=== PATIENT | male | born 1970 | race Caucasian/White ===

== ENCOUNTER → 2017-10-30 11:11 | Outpatient (POV) | payer BC, SELFPAY ==
[2017-10-30 11:49] VITALS: BP 107/78; PULSE 110; RESP 18; O2SAT 99
--- NOTE | 2017-10-30 12:07 | HMH.PMCON ---
Assessment and Plan (1) Degenerative joint disease (DJD) of lumbar spine Current visit: Yes Status: Acute Qualifiers: Spinal osteoarthritis complication: with radiculopathy Qualified Code(s): M47.26 - Other spondylosis with radiculopathy, lumbar region Category: Medical Code(s): M47.816 - Spondylosis without myelopathy or radiculopathy, lumbar region (2) Lumbosacral radiculopathy due to degenerative joint disease of spine Current visit: Yes Status: Acute Category: Medical Code(s): M47.27 - Other spondylosis with radiculopathy, lumbosacral region - Assessment and plan all Dx Assessment and Plan for all problems:: I believe he would benefit from a lumbar epidural steroid injection. We will seek approval for a lumbar epidural steroid injection L4-L5. I told him that we cannot prescribe his Wren. He will have to continue getting this from Dr. Delatorre. HPI - Data of Consult Patient: new to practice Consult date: 10/30/17 Requesting Physician: José Allen MD Primary Care Provider: Wm Delatorre MD Family Provider: Referral Provider, MD - Consult Narrative Reason for consult: Low back pain and leg pain History of present illness: Mr. Camejo is a 47 year old male who has a long history of low back pain with lumbar radicular symptoms. He was recently treated at the pain treatment center in [facility]. He was called in for a pill count and was working in [place] and unable to return for the pill count so he was dismissed from the pain treatment center. Dr. Delatorre has resumed providing his Wren 7.5 mg 3 times a day. He has not received any injections. He has not undergone any physical therapy. I have told him that we cannot prescribe him the Wren. I do believe he would benefit from injections. He did have previous back surgery in 2012. Most of his pain is in the low back with radiation to both legs. Pain score is an 8 out of 10. CC: José Allen MD [facility] History I have reviewed the patient's past medical history: Yes Medical History: Denies:: Cancer, Diabetes Mellitus Type 1, Diabetes Mellitus Type 2, MRSA Other Medical History: Reports: Arthritis Other Surgeries: Yes: Other (Back surgery) Amputation: No Fractures: No - *Social History Smoking Status: Current every day smoker Tobacco Type: cigarettes # Packs/Day (cigarettes): 1 Alcohol Intake: never Occupational Status: employed - Psychiatric History Expresses thoughts of harming self/others: None Suicide Plan Description: No Plan *Family Hx:: Unable to obtain Review of Systems - *Musculoskeletal Reports joint pain, Reports back pain, Reports radiating pain into limb, Reports stiffness, Reports tingling - *Neurologic Reports abnormal walking, Reports radiating pain Meds Allergies Allergy/AdvReac Type Severity Reaction Status Date / Time ketorolac [KETOROLAC] Allergy Unknown I-RASH Unverified 10/16/17 14:03 propoxyphene Allergy Unknown ITCHING Unverified 10/16/17 14:03 [From LOR] Objective Vital signs: Pulse Resp BP Pulse Ox 110 H 18 107/78 99 10/30/17 11:49 10/30/17 11:49 10/30/17 11:49 10/30/17 11:49 - Routine Back/Spine/Pelvis Exam Back/Spine: Present: vertebral tenderness, pain with flexion, abnormal straight leg raise - *Routine Neurological Exam Present: alert, oriented X3 Opioid Risk Tool - Opioid Risk Tool-Male Family hx alcohol abuse: N Family hx illegal drugs: N Family hx rx drug abuse: N Personal hx alcohol abuse: N Personal hx illegal drugs: N Personal hx rx drug abuse: N Age: 45+ Hx of sexual abuse: N Mental health issues-ADD,OCD,Bipolar, etc: N Hx of depression: N Male Risk Score: 0
--- NOTE | 2017-10-30 12:10 | P.CONS_ITS ---
Assessment and Plan (1) Degenerative joint disease (DJD) of lumbar spine Current visit: Yes Status: Acute Qualifiers: Spinal osteoarthritis complication: with radiculopathy Qualified Code(s): M47.26 - Other spondylosis with radiculopathy, lumbar region Category: Medical Code(s): M47.816 - Spondylosis without myelopathy or radiculopathy, lumbar region (2) Lumbosacral radiculopathy due to degenerative joint disease of spine Current visit: Yes Status: Acute Category: Medical Code(s): M47.27 - Other spondylosis with radiculopathy, lumbosacral region - Assessment and plan all Dx Assessment and Plan for all problems:: I believe he would benefit from a lumbar epidural steroid injection. We will seek approval for a lumbar epidural steroid injection L4-L5. I told him that we cannot prescribe his Emmalena. He will have to continue getting this from Dr. Delatorre. HPI - Data of Consult Patient: new to practice Consult date: 10/30/17 Requesting Physician: José Allen MD Primary Care Provider: Wm Delatorre MD Family Provider: Referral Provider, MD - Consult Narrative Reason for consult: Low back pain and leg pain History of present illness: Mr. Camejo is a 47 year old male who has a long history of low back pain with lumbar radicular symptoms. He was recently treated at the pain treatment center in [facility]. He was called in for a pill count and was working in [place] and unable to return for the pill count so he was dismissed from the pain treatment center. Dr. Delatorre has resumed providing his Emmalena 7.5 mg 3 times a day. He has not received any injections. He has not undergone any physical therapy. I have told him that we cannot prescribe him the Emmalena. I do believe he would benefit from injections. He did have previous back surgery in 2012. Most of his pain is in the low back with radiation to both legs. Pain score is an 8 out of 10. CC: José Allen MD [facility] History I have reviewed the patient's past medical history: Yes Medical History: Denies:: Cancer, Diabetes Mellitus Type 1, Diabetes Mellitus Type 2, MRSA Other Medical History: Reports: Arthritis Other Surgeries: Yes: Other (Back surgery) Amputation: No Fractures: No - *Social History Smoking Status: Current every day smoker Tobacco Type: cigarettes # Packs/Day (cigarettes): 1 Alcohol Intake: never Occupational Status: employed - Psychiatric History Expresses thoughts of harming self/others: None Suicide Plan Description: No Plan *Family Hx:: Unable to obtain Review of Systems - *Musculoskeletal Reports joint pain, Reports back pain, Reports radiating pain into limb, Reports stiffness, Reports tingling - *Neurologic Reports abnormal walking, Reports radiating pain Meds Allergies Allergy/AdvReac Type Severity Reaction Status Date / Time ketorolac [KETOROLAC] Allergy Unknown I-RASH Unverified 10/16/17 14:03 propoxyphene Allergy Unknown ITCHING Unverified 10/16/17 14:03 [From LOR] Objective Vital signs: Pulse Resp BP Pulse Ox 110 H 18 107/78 99 10/30/17 11:49 10/30/17 11:49 10/30/17 11:49 10/30/17 11:49 - Routine Back/Spine/Pelvis Exam Back/Spine: Present: vertebral tenderness, pain with flexion, abnormal straight leg raise - *Routine Neurological Exam Present: alert, oriented X3 Opioid Risk Tool - Opioid Risk Tool-Male Family hx alcohol abuse: N Family
== END ==
PROVIDERS: PCP Emergency Medicine; Visit Provider Anesthesiology
DX: M51.16 Intervertebral disc disorders with radiculopathy, lumbar region (principal); M51.17 Intervertebral disc disorders with radiculopathy, lumbosacral region
CPT/HCPCS: 99202

== ENCOUNTER → 2018-01-07 15:55 | Outpatient (REF) | payer BC, SELFPAY ==
[2018-01-07 17:46] LABS: Amphetamine/Metha Screen,Urine Negative ng/mL (<1000); Barbiturates Screen,Urine Negative ng/mL (<200); Benzodiazepines Screen,Urine Negative ng/mL (200); Cannabinoid Screen,Urine Negative ng/mL (<50); Cocaine Screen,Urine Negative ng/g (<300); Methadone Screen,Urine Negative ng/mL (<300); Opiate Screen,Urine Negative ng/mL (<300); Phencyclidine Screen,Urine Negative ng/mL (<25)
== END ==
LOC: LAB 15:55
PROVIDERS: Visit Provider Physician Assistant
DX: Z79.899 Other long term (current) drug therapy (principal)
CPT/HCPCS: 80305

== ENCOUNTER → 2019-11-11 13:58 | Outpatient (CLI) | payer BC, SELFPAY ==
--- NOTE | 2019-11-11 14:04 | XR_ITS ---
PROCEDURE: XR FOOT WT BEARING LT 3V CLINICAL INDICATION: pain COMPARISON: [id number] XR foot RT min 3V from 03/13/2019 FINDINGS: No fracture or dislocation. No lytic or blastic change. There is normal mineralization. The joint spaces are well-preserved. No significant degenerative/arthritic changes. No erosive changes evident. Other findings:There is mild pes planus and there is minimal hypertrophic change of the anterior distal tibia IMPRESSION: Mild pes planus Dictated by: Sahil Barton MD 11/11/2019 14:45 Electronically signed by Sahil Barton MD in [place] 11/11/2019 14:45
--- NOTE | 2019-11-11 14:04 | XR_ITS ---
PROCEDURE: XR FOOT WT BEARING RT 3V CLINICAL INDICATION: pain COMPARISON: [id number] XR foot RT min 3V from 03/13/2019 FINDINGS: No fracture or dislocation. No lytic or blastic change. There is normal mineralization. There are mild osteoarthritic changes of the talonavicular joint. There is an accessory bony ossicle at the anterior aspect of the talonavicular joint which could be due to an old fracture or ununited ossification center. This had a similar appearance on 03/13/2019. Hypertrophic changes are present vomiting anterior aspect of the distal tibia and there is some minimal periarticular calcification posteriorly at the ankle joint. A calcific density is also present along the anterior and distal aspect of the 1st metatarsal with some mild soft tissue swelling at this region. Other findings:None. IMPRESSION: Degenerative changes. No acute finding Dictated by: Sahil Barton MD 11/11/2019 14:47 Electronically signed by Sahil Barton MD in [place] 11/11/2019 14:47
== END ==
PROVIDERS: PCP Emergency Medicine; Visit Provider Podiatrist
DX: M79.672 Pain in left foot (principal); M79.671 Pain in right foot
CPT/HCPCS: 73630

== ENCOUNTER 2020-01-08 08:00 | Outpatient (RCR) | payer BC, SELFPAY | END 2020-01-08 09:00 | disposition home or self-care (01) | LOC: PT 08:00 | PROVIDERS: PCP Emergency Medicine; Visit Provider Anesthesiology Pain Medicine | DX: M47.816 Spondylosis without myelopathy or radiculopathy, lumbar region (principal); M54.16 Radiculopathy, lumbar region; M17.0 Bilateral primary osteoarthritis of knee; G89.4 Chronic pain syndrome | CPT/HCPCS: 20560; 97010; 97014; 97110; 97163; G0283 ==

== ENCOUNTER 2020-06-01 15:13 | Emergency (ER) | payer BC, SELFPAY ==
[2020-06-01] VITALS (35 sets, daily range): BP systolic 74–224; BP diastolic 36–123; PULSE 57–120; RESP 16–20; TEMP 34.2–35.7; O2SAT 88–100; BMI 22.4
--- NOTE | 2020-06-01 15:13 | PC.NURSE ---
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
--- NOTE | 2020-06-01 15:13 | PC.NURSE ---
Code blue information: 1513- pt arrived via EMS, ER MD at BS 1515- pulse check, no pulse, cpr continued- EPI given- see DEC 1515- pulse check, PEA, cpr continued 1518- pulse check, tachycardia noted, positive pulse 1520- fsbs 522 1521- EKG 1525- fisher catheter inserted, ua obtained 1526- abg obtained 1525- pt intubated per ER MD, ETT 7.5, 24 at [facility] 1531-radiology at BS, abd results given to ER 1533- echo at BS 1537- pt placed on ventilator per RT
--- NOTE | 2020-06-01 15:34 | XR_ITS ---
PROCEDURE: XR CHEST PORTABLE CLINICAL HISTORY: unresponsive Code blue COMPARISON: CR CXR1 CHEST-PORTABLE from 05/05/2015 CR CXR CHEST(2 VIEWS-NOT PORTABLE) from 05/05/2015 CR CXR2 CHEST-AP VIEW ONLY from 05/05/2015 FINDINGS: Endotracheal tube is present. The tip is in good position 5.5 cm above the taqueria at the T3-T4 level. There is overlying resuscitative device is present as well as monitoring device is somewhat obscuring the right chest. There is increased density in the right lower lung zone which may be due to atelectasis or infiltrate. The left hilum is also somewhat prominent. Gas-filled stomach noted. No evidence of pneumothorax or mediastinal shift. There is a bone plate along the lower cervical spine No acute bony abnormalities. IMPRESSION: Endotracheal tube tip in good position. Right lower lobe atelectasis or infiltrate. Prominent left hilum Dictated b Sahil Barton MD 06/01/2020 15:41 Sahil Barton MD in [place] 06/01/2020 15:41
[2020-06-01 15:41] LABS: Basophils # 0.1 K/mm3 (0-0.2); Basophils % 0.7 % (0.1-2.0); Eosinophils # 0.4 K/mm3 (0.0-0.4); Eosinophils % 2.3 % (0.1-12.0); Hematocrit 37.2 % (42.0-52.0); Hemoglobin 11.3 g/dL (14.1-18.0); Lymphocytes # 7.7 K/mm3 (0.7-4.5); Lymphocytes % 51.2 % (10-50); Mean Corpuscular HGB Conc 30.4 g/dL (31.8-35.4); Mean Corpuscular Volume 108.4 fl (80-94); Mean Platelet Volume 7.8 fl (7.4-10.4); Monocytes # 0.5 K/mm3 (0.1-1.0); Monocytes % 3.4 % (1.7-9.3); Neutrophils # 6.4 K/mm3 (1.8-7.8); Neutrophils % 42.4 % (37.0-80.0); Platelet Count 214 K/mm3 (142-424); Red Blood Count 3.43 M/mm3 (4.60-6.20); Red Cell Distribution Width 12.8 % (11.5-17.5)
[2020-06-01 15:42] LABS: Chloride 100 mmol/L (98-107); Potassium 4.9 mmoL/L (3.5-5.1); Sodium 132 mmol/L (136-145)
[2020-06-01 15:43] LABS: MANUAL DIFFERENTIAL MANUAL DIFFERENTIAL (MANUAL DIFF)
[2020-06-01 15:44] LABS: Blood Urea Nitrogen 13 mg/dl (9-20); Creatinine Clearance Estimated 82 mL/min (50-200); Estimated Glomerular Filt Rate 64 ml/min (>60); GFR (African American) 77 ML/MIN (>60)
[2020-06-01 15:45] LABS: Alanine Aminotransferase 64 U/L (12-78); Albumin Level 2.8 g/dl (3.5-5.0); Albumin/Globulin Ratio 1.3 (1.1-1.8); Alkaline Phosphatase 50 U/L (38-126); Anion Gap 23.9 mEq/L (5-15); Aspartate Amino Transferase 94 U/L (17-59); Bilirubin,Total 0.2 mg/dl (0.2-1.3); Calcium 8.5 mg/dl (8.4-10.2); Carbon Dioxide 13 mmol/L (22.0-30.0); Globulin 2.1 g/dL (1.3-3.2); Total Protein,Serum 4.9 g/dl (6.3-8.2)
[2020-06-01 15:47] LABS: Glucose 529 mg/dl (74-100)
--- NOTE | 2020-06-01 15:47 | PC.NURSE ---
Addendum entered by Michelle Coe RN 06/01/20 18:36: notified Original Note: notified RT of critical glucose level called by lab.
--- NOTE | 2020-06-01 15:47 | HMH.EDGENADL ---
ED Disposition Clinical Impression: Cardiac arrest Disposition: Xfer Short-Term Hosp Condition on Discharge: Critical Referrals: PCP,No [Primary Care Provider] - Forms: Transfer Record - ED Time of Disposition: 21:17 - Critical Care Critical Care Time: Yes Attestation: On 06/01/20, the high probability of a clinically significant, sudden or life threatening deterioration of the following system(s) required my full and direct attention, intervention and personal management. The time I documented below is in addition to time spent performing reported procedures but includes the following listed in this critical care notation. Total Critical Care Time: 45 Vital system(s) involved:: Circulatory Failure My critical care processes included: Assessment & monitoring of V/S, Initial and Re-exams, Data Review/Interpretation, Coordinating Care, Medication Orders and management, Documentation Medical Decision Making - Medical Records Medical records reviewed: Yes: I reviewed the patient's medical records. Comment: 50-year-old male with a history of heroin abuse and hypertension presents to the emergency department as a CODE BLUE. Patient arrived receiving chest compressions and ACLS was continued. From the history he was down around 25 minutes before we got pulses back here. He was initially A. fib on EKG and is now in normal rhythm. His initial pH was 6.6 and is now 6.9. He is also hyperglycemic. Potassium is normal. He was given fluids and insulin. Prior to ROSC treated with epi, calcium, fluids. Prior history from reveals that he was normal throughout the day, no fever or illness, no headache or altered mental status. Was found down by with what she describes as decreased respirations. No pulse on EMS arrival. Given this, infection/septic cause unlikely. Opiates on board here, assumed likely overdose. He is hemodynamically stable at this time but has had no signs of brain activity here, talked with family about likelihood of poor outcome and he will be transfered for scans and brain exam if needed. Stable but critical on transfer. - Regis Inquiry Pt receiving controlled substance: No Vital Signs: 06/01/20 15:20 06/01/20 15:27 06/01/20 15:34 Temperature Temperature Source Pulse Rate Pulse Rate [Right Radial] 88 107 H 120 H Respiratory Rate Blood Pressure Blood Pressure [Right Arm] 191/91 H 183/105 H 164/105 H Blood Pressure Mean [Right Arm] 124 131 124 Blood Pressure Source Blood Pressure Source [Right Arm] Automatic Cuff Automatic Cuff Automatic Cuff Blood Pressure Position Blood Pressure Position [Right Arm] Sitting Sitting Sitting 02 Sat by Pulse Oximetry 88 L 99 99 Oxygen Delivery Method Ambu-Bag Ambu-Bag Ambu-Bag 06/01/20 15:39 06/01/20 15:42 06/01/20 15:50 Temperature Temperature Source Pulse Rate Pulse Rate [Right Radial] 95 H 89 79 Respiratory Rate Blood Pressure Blood Pressure [Right Arm] 156/95 H 120/71 80/47 L Blood Pressure Mean [Right Arm] 115 87 58 Blood Pressure Source Blood Pressure Source [Right Arm] Automatic Cuff Automatic Cuff Blood Pressure Position Blood Pressure Position [Right Arm] Sitting 02 Sat by Pulse Oximetry 98 99 99 Oxygen Delivery Method Mechanical Ventilation Mechanical Ventilation Mechanical Ventilation 06/01/20 15:56 06/01/20 16:00 06/01/20 16:05 Temperature Temperature Source Pulse Rate Pulse Rate [Right Radial] 57 L 70 72 Respiratory Rate Blood Pressure Blood Pressure [Right Arm] 75/42 L 74/36 L 79/38 L Blood Pressure Mean [Right Arm] 53 48 51 Blood Pressure Source Blood Pressure Source [Right Arm] Automatic Cuff Blood Pressure Position Blood Pressure Position [Right Arm] Sitting 02 Sat by Pulse Oximetry 100 100 100 Oxygen Delivery Method Mechanical Ventilation Mechanical Ventilation Mechanical Ventilation 06/01/20 16:10 06/01/20 16:13 06/01/20 16:20 Temperature T
--- NOTE | 2020-06-01 15:48 | PC.NURSE ---
Dr Kay speaking with family.
--- NOTE | 2020-06-01 15:49 | CA_ITS ---
APPROVED REPORT EXAM: Limited 2D Echocardiogram Breakdown Man: Irma Lora RVT Ht: 6 ft 2 in Wt: 175lbs BSA: 2.05 BP: 154/72 mmHg Indications: LIMITED ECHO TO CHECK WALL MOTION POST CARDIAC ARREST Left Ventricle Limited study obtained, left atrium is mildly enlarged, left ventricle is normal size, there is preserved left ventricular systolic function in the obtained views, visually estimated ejection fraction 55% with no regional wall motion abnormality. Right Ventricle Right atrium and right ventricular normal size and contractility. Aortic Valve Aortic valve is minimally thickened and calcified, aortic root is not well visualized. Mitral Valve Mitral valve is grossly normal. Tricuspid Valve Tricuspid valve is not visualized. Pulmonic Valve Pulmonic valve is not visualized. Great Vessels Aortic root and ascending aorta not well visualized. Pericardium No significant pericardial effusion noted. Conclusion 1. Limited study performed. 2. Normal left ventricular size with preserved left ventricular systolic function visually estimated ejection fraction 55% with no regional wall motion abnormality. 3. No significant pericardial effusion noted. Electronically signed by : David Rivera, 06/01/2020 16:25:59
--- NOTE | 2020-06-01 15:55 | ECG_ITS ---
APPROVED REPORT Exam: Resting ECG HR:68 bpm ECG Measurements Heart Rate 68 AXES MD 178 P 33 QRSd 110 QRS 43 QT 444 T 43 QTc 472 <Conclusion> Normal sinus rhythm Normal ECG Electronically signed by : Rodolfo Salazar, 06/02/2020 07:18:19
--- NOTE | 2020-06-01 15:55 | PC.NURSE ---
Pharmacy [facility] to be bringing levophed drip
[2020-06-01 16:03] LABS: Microscopic, Urine URINE MICROSCOPIC (MICROSCOPIC)
[2020-06-01 16:03] LABS: Lymphocytes % 57 % (10-50); Macrocytosis 2+; Monocytes % 3 % (2-9); Neutrophils % 40 % (42-76); Total Cells Counted 100
[2020-06-01 16:04] LABS: Anisocytosis 1+; Platelet Estimate Normal
[2020-06-01 16:05] LABS: ABG Base Excess -14.9 mmol/L (-2.4-2.3); ABG HCO3 17.4 mmhg (22.0-26.0); ABG Oxygen Saturation 98 % (90-100); ABG PO2 188.7 mmhg (80-100)
[2020-06-01 16:07] LABS: Oxygen 100 %; PEEP 8; Tidal Volume 400; Vent Rate 20
--- NOTE | 2020-06-01 16:07 | PC.NURSE ---
Family at bedside
[2020-06-01 16:08] LABS: ABG PCO2 84.2 mmhg (35.0-45.0); ABG PH 6.93 mmol/L (7.35-7.45); Source R BRACHIAL
[2020-06-01 16:10] LABS: Appearance,Urine CLEAR (Clear); Bilirubin,Urine Negative (Negative); Blood, Urine 1+ (Negative); Color,Urine YELLOW (Yellow); Glucose,Urine (UA) Negative (Negative); Ketones,Urine Negative (Negative); Leukocyte Esterase,Urine Negative (Negative); Nitrate,Urine Negative (Negative); Protein,Urine 2+ (Negative); Specific Gravity, Urine >= 1.030 (1.005-1.030); Urobilinogen,Urine 0.2 EU/dl (0.2)
[2020-06-01 16:10] LABS: ABG HCO3 15.4 mmhg (22.0-26.0); ABG Oxygen Saturation 96 % (90-100); ABG PO2 160.2 mmhg (80-100); Oxygen 100 %; Tidal Volume AMBU
[2020-06-01 16:11] LABS: ABG PCO2 151.1 mmhg (35.0-45.0); ABG PH 6.63 mmol/L (7.35-7.45); Source L RADIAL
--- NOTE | 2020-06-01 16:21 | PC.NURSE ---
notified RT of vent alarm low FiO2, pt has been suctioned twice, SaO2 100% RT states she is coming down will continue to monitor
--- NOTE | 2020-06-01 16:26 | PC.NURSE ---
levophed drip stopped at this time, BP 151/98, ER notified
[2020-06-01 16:32] LABS: Benzodiazepines Screen,Urine Negative ng/ml (<200)
--- NOTE | 2020-06-01 16:32 | PC.NURSE ---
RT at BS, adjusted Vent settings to FiO2 50%
[2020-06-01 16:33] LABS: Barbiturates Screen,Urine Negative ng/ml (<200); Cannabinoid Screen,Urine Negative ng/ml (<50)
[2020-06-01 16:34] LABS: Cocaine Screen,Urine Negative ng/ml (<300)
[2020-06-01 16:35] LABS: Methadone Screen,Urine Negative ng/ml (<300); Opiate Screen,Urine Positive ng/ml (<300)
[2020-06-01 16:36] LABS: Phencyclidine Screen,Urine Negative ng/ml (<25)
--- NOTE | 2020-06-01 16:48 | PC.NURSE ---
notified ER of pt BP 166/99 no new orders obtained at this time, will continue to monitor
--- NOTE | 2020-06-01 16:53 | PC.NURSE ---
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 hernanedz who is conveyor weigher operator for Dr. vogt
--- NOTE | 2020-06-01 16:57 | PC.NURSE ---
PAVITHRA CURRY spoke with dr. hernandez
--- NOTE | 2020-06-01 17:15 | PC.NURSE ---
notified ER of pt temperature 93.6, enio paws warmer placed on pt, warm blankets in place. Will continue to monitor
--- NOTE | 2020-06-01 17:20 | PC.NURSE ---
pt suctioned at this time, will continue to monitor
--- NOTE | 2020-06-01 17:24 | PC.NURSE ---
Pt cleaned up and attends placed. Family back at bedside at this time.
--- NOTE | 2020-06-01 17:25 | PC.NURSE ---
Calling [facility] at this time.
--- NOTE | 2020-06-01 17:31 | PC.NURSE ---
Dr Pena to return call from [facility]
--- NOTE | 2020-06-01 17:37 | PC.NURSE ---
PAVITHRA CURRY speaking with Dr. Bonilla at [facility]
--- NOTE | 2020-06-01 17:40 | PC.NURSE ---
[facility] does not have a bed at this time but will know more at shift change at 7pm. Calling [facility] at this time.
--- NOTE | 2020-06-01 17:43 | PC.NURSE ---
[facility] call [facility] states that they do not have beds at this time but will have their ICu Pryor call us back.
--- NOTE | 2020-06-01 17:46 | PC.NURSE ---
[facility] called back asking for a dianosis on pt, states they are paging the special services supervisor, states a post cardiac arrest pt does not go on a waiting list.
--- NOTE | 2020-06-01 17:50 | PC.NURSE ---
notified ER MD of pt rectal temperature 95.2 ER MD states to continue to monitor temperature but to d/c enio paws warmer at this time
--- NOTE | 2020-06-01 18:00 | PC.NURSE ---
DR ALMEIDA CONSULTING WITH DR JACOB AT [facility] AT THIS TIME CONCERNING POSSIBLE ACCEPTANCE/TRANSFER.
--- NOTE | 2020-06-01 18:11 | PC.NURSE ---
[facility] DECLINES ACCEPTANCE DUE TO NO BEDS AVAILABLE. FAMILY UPDATED ON PLAN OF CARE.
--- NOTE | 2020-06-01 18:22 | PC.NURSE ---
calling at this time.
--- NOTE | 2020-06-01 18:28 | PC.NURSE ---
[facility] to return call
--- NOTE | 2020-06-01 18:32 | PC.NURSE ---
PAVITHRA CURRY speaking with Dr. Avila at
--- NOTE | 2020-06-01 18:41 | PC.NURSE ---
pt accepted to per Dr. Harmon, waiting on a bed assignment
--- NOTE | 2020-06-01 19:11 | PC.NURSE ---
fsbs 192
--- NOTE | 2020-06-01 19:11 | PC.NURSE ---
FSBS 192
--- NOTE | 2020-06-01 19:15 | PC.NURSE ---
notified ER MD of fsbs and bp of 204/123 ER MD gave verbal orders for pt.
[2020-06-01 19:16] LABS: POC Glucose,Bedside 192 (70-110)
[2020-06-01 19:16] LABS: POC Glucose,Bedside 134 (70-110)
[2020-06-01 19:33] LABS: Glucose,Random 154 mg/dL (74-100)
--- NOTE | 2020-06-01 19:40 | PC.NURSE ---
shift change report to [facility]
--- NOTE | 2020-06-01 20:06 | PC.NURSE ---
[facility] accepted flight. eta 20-25 mins
--- NOTE | 2020-06-01 20:28 | PC.NURSE ---
[place] at bedside.
[2020-06-01 21:13] LABS: Amphetamine/Metha Screen,Urine Positive ng/ml (<1000)
[2020-06-28 12:50] LABS: POC Glucose,Bedside 522 (70-110)
== END 2020-06-01 20:56 | disposition short-term general hospital (02) ==
PROVIDERS: Emergency Provider Emergency Medicine
DX: I46.9 Cardiac arrest, cause unspecified (principal); T40.1X1A Poisoning by heroin, accidental (unintentional), initial encounter; Y92.019 Unspecified place in single-family (private) house as the place of occurrence of the external cause; K21.9 Gastro-esophageal reflux disease without esophagitis; F17.210 Nicotine dependence, cigarettes, uncomplicated; R73.9 Hyperglycemia, unspecified
CPT/HCPCS: 31500; 94002; 36415; 71045; 80053; 80305; 81001; 82803; 82947; 82962; 85007; 85025; 87070; 87077; 87186; 87205; 93005; 93308; 96365; 96366; 96367; 96375; 96376; 99285